=== PATIENT | female | born 1980 | race Two or more races ===

== ENCOUNTER 2018-12-29 00:48 | Emergency (ER) | payer OTHER ==
--- NOTE | 2018-12-29 01:02 | EDPHY ---
H & P Stated Complaint: rash starting yesterday morning, manuelito at 2200, worsening now Time Seen by Provider: 12/29/18 01:02 HPI/ROS: HPI CHIEF COMPLAINT: Itchy rash. 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 The rash is progressing got worse. It is mainly on her extremities. Inner thighs, arms very blotchy. Appears to be urticaria. No particular purpura. No skin sloughing. Patient denies any recent illness, denies fever, denies being sick. Patient denies any chest pain or shortness of breath. Denies trouble swallowing. She has never had this before. The itching got worse tonight and this is what caused her to come to the emergency room Of note this patient is Serbian-speaking only. extension supervisor was used for history review of systems, and physical exam. Past Medical History: Denies medical history Past Surgical History: Denies surgical history Social History: Denies drugs alcohol tobacco. Family History: Noncontributory ROS REVIEW OF SYSTEMS: 10 Systems were reviewed and negative with the exception of the elements mentioned in the history of present illness. Exam Constitutional appears well nontoxic no acute distress triage nursing summary reviewed, vital signs reviewed, awake/alert. Vital signs stable Eyes normal conjunctivae and sclera, EOMI, PERRLA. HENT normal inspection, atraumatic, moist mucus membranes, no epistaxis, neck supple/ no meningismus, no raccoon eyes. Respiratory clear to auscultation bilaterally, normal breath sounds, no respiratory distress, no wheezing. Cardiovascular rate normal, regular rhythm, no murmur, no edema, distal pulses normal. Gastrointestinal soft, non-tender, no rebound, no guarding, normal bowel sounds, no distension, no pulsatile mass. Genitourinary no CVA tenderness. Musculoskeletal no midline vertebral tenderness, full range of motion, no calf swelling, no tenderness of extremities, no meningismus, good pulses, neurovascularly intact. Skin urticaria throughout the arms and legs, inner thighs, no petechia, no purpura, no central clearing, no skin sloughing, Neurologic awake, alert and oriented x 3, AAOx3, moves all 4 extremities equally, motor intact, sensory intact, CN II-XII intact, normal cerebellar, normal vision, normal speech. Psychiatric normal mood/affect. Heme/Lymph/Immune no lymphadenopathy. Differential Diagnosis: Includes but is not limited to in a particular order allergic reaction, severe allergic reaction, urticaria, erythema multiform, vasculitis Medical Decision Making: Plan for this patient IV establishment with IV fluid bolus, IV Benadryl, IV Pepcid, IV Solu-Medrol, director of cardiac rehabilitation pulse ox continue to monitor. She has no airway involvement. No trouble breathing no trouble swallowing. Re-evaluation: 0445: Patient re-evaluated this time she has been resting comfortably here for multiple hours there has been no progression of allergic reaction She is feeling much better in terms of pruritus. Her urticaria has went down greatly. She is no longer itching and she is requesting be discharged home. Patient denies any trouble swallowing or breathing, denies GI upset. States she feels much better. extension supervisor was used for discharge instructions return precautions and to go over her medications she understands and is comfortable this plan. She does understand if she develops worsening allergic reaction trouble breathing, trouble swallowing, further rash, worsening itching she needs to immediately return to the emergency room. She is comfortable this plan. I went over her Pepcid, Benadryl prednisone that she needs to take for the next 3 days. Return precautions discussed. Source: Patient - Personal History LMP (Females 10-55): Now Current Tetanus/Diphtheria Vaccine: Unsure Current Tetanus Diphtheria and Acellular Pertussis (TDAP): Unsure - Medical/Surgical History Hx Asthma: No Hx Chronic Respiratory Disease: No Hx Diabetes: No Hx Cardiac Disease: No Hx Renal Disease: No Hx Cirrhosis: No Hx Alcoholism: No Hx HIV/AIDS: No Hx Splenectomy or Spleen Trauma: No Other PMH: none - Social History Smoking Status: Never smoked Constitutional: Initial Vital Signs Temperature (C) 37.0 C 12/29/18 00:54 Heart Rate 85 12/29/18 00:54 Respiratory Rate 20 12/29/18 00:54 Blood Pressure 115/69 12/29/18 00:54 O2 Sat (%) 93 12/29/18 00:54 O2 Delivery Mode Room Air Allergies/Adverse Reactions: No Known Allergies Allergy (Unverified 12/29/18 00:53) Home Medications: Medication Instructions Recorded Tylenol 12/24/15 EPINEPHrine [Epipen 0.3 MG] 0.3 mg IM ONCE #2 syr 12/29/18 Famotidine [Pepcid 20 MG (*)] 20 mg PO BID #6 tab 12/29/18 diphenhydrAMINE [Benadryl 25 MG 25 mg PO BID #6 tab 12/29/18 (*)] predniSONE 60 mg PO DAILY #9 tab 12/29/18 Medical Decision Making - Data Points Laboratory Results: Laboratory Results 12/29/18 01:15 12/29/18 01:15 12/29/18 12/29/18 12/29/18 01:15 01:15 01:15 WBC 7.43 10^3/uL 10^3/uL (3.80-9.50) RBC 4.66 10^6/uL 10^6/uL (4.18-5.33) Hgb 11.7 g/dL L g/dL (12.6-16.3) Hct 36.1 % L % (38.0-47.0) MCV 77.5 fL L fL (81.5-99.8) MCH 25.1 pg L pg (27.9-34.1) MCHC 32.4 g/dL g/dL (32.4-36.7) RDW 15.1 % % (11.5-15.2) Plt Count 304 10^3/uL 10^3/uL (150-400) MPV 10.0 fL fL (8.7-11.7) Neut % (Auto) 68.4 % % (39.3-74.2) Lymph % (Auto) 22.9 % % (15.0-45.0) Mcdowell % (Auto) 4.0 % L % (4.5-13.0) Eos % (Auto) 4.0 % % (0.6-7.6) Baso % (Auto) 0.3 % % (0.3-1.7) Nucleat RBC Rel Count 0.0 % % (0.0-0.2) Absolute Neuts (auto) 5.08 10^3/uL 10^3/uL (1.70-6.50) Absolute Lymphs (auto) 1.70 10^3/uL 10^3/uL (1.00-3.00) Absolute Monos (auto) 0.30 10^3/uL 10^3/uL (0.30-0.80) Absolute Eos (auto) 0.30 10^3/uL 10^3/uL (0.03-0.40) Absolute Basos (auto) 0.02 10^3/uL 10^3/uL (0.02-0.10) Absolute Nucleated RBC 0.00 10^3/uL 10^3/uL (0-0.01) Immature Gran % 0.4 % % (0.0-1.1) Immature Gran # 0.03 10^3/uL 10^3/uL (0.00-0.10) Sodium 136 mEq/L mEq/L (135-145) Potassium 3.9 mEq/L mEq/L (3.5-5.2) Chloride 108 mEq/L mEq/L (97-110) Carbon Dioxide 22 mEq/l mEq/l (22-31) Anion Gap 6 mEq/L mEq/L (6-14) BUN 15 mg/dL mg/dL (7-23) Creatinine 0.7 mg/dL mg/dL (0.6-1.0) Estimated GFR > 60 Glucose 122 mg/dL H mg/dL (70-100) Calcium 9.2 mg/dL mg/dL (8.5-10.4) Beta HCG, Qual NEGATIVE Medications Given: Discontinued Medications Diphenhydramine HCl (Benadryl Injection) 50 mg IVP EDNOW ONE Stop: 12/29/18 01:12 Last Admin: 12/29/18 01:23 Dose: 50 mg Famotidine (Pepcid) 20 mg IVP EDNOW ONE Stop: 12/29/18 01:12 Last Admin: 12/29/18 01:23 Dose: 20 mg Sodium Chloride (Ns) 1,000 mls @ 0 mls/hr IV EDNOW ONE; Wide Open PRN Reason: Protocol Stop: 12/29/18 01:11 Last Admin: 12/29/18 01:22 Dose: 1,000 mls Methylprednisolone Sodium Succinate (Solu-Medrol) 125 mg IVP EDNOW ONE Stop: 12/29/18 01:12 Last Admin: 12/29/18 01:23 Dose: 125 mg Departure - Departure Disposition: Home, Routine, Self-Care Clinical Impression: Acute allergic reaction Qualifiers: Encounter type: initial encounter Qualified Code(s): T78.40XA - Allergy, unspecified, initial encounter Condition: Good Instructions: Famotidine (By mouth), Prednisone (By mouth), Diphenhydramine ( By mouth), Epinephrine (By injection), Urticaria (ED), Anaphylaxis (ED), Allergies (ED) Additional Instructions: 1. Prednisone for the next 3 days. 2. Benadryl for the next 3 days 3. Pepcid for the next 2 days 4. Follow up with your primary care doctor 5. Return to the emergency room, if you have worsening symptoms this includes trouble breathing, worsening rash. Referrals: NONE *PRIMARY CARE P,. [Primary Care Provider] - As per Instructions [facility],. [Clinic] - As per Instructions Prescriptions: diphenhydrAMINE [Benadryl 25 MG (*)] 25 mg PO BID #6 tab EPINEPHrine [Epipen 0.3 MG] 0.3 mg IM ONCE #2 syr Famotidine [Pepcid 20 MG (*)] 20 mg PO BID #6 tab predniSONE 60 mg PO DAILY #9 tab Print Language: Serbian
[2018-12-29] MEDS ORDERED: NS 1,000 ML IV ONE (01:10)
[2018-12-29] MEDS ORDERED: methylPREDNISolone SOD SUCC 125 MG/2 ML VIAL IVP ONE (01:11)
[2018-12-29] MEDS ORDERED: FAMOTIDINE 20 MG/2 ML SDV IVP ONE (01:11)
[2018-12-29 01:24] LABS: PLATELET COUNT 304 10^3/uL (150-400)
[2018-12-29 04:40] VITALS: BP 106/68
== END 2018-12-29 05:19 | disposition home or self-care (01) ==
DX: T78.40XA Allergy, unspecified, initial encounter (principal); E86.9 Volume depletion, unspecified
CPT/HCPCS: 96374; J1200; J2930